=== PATIENT | male | born 1945 | race Two or more races ===

== ENCOUNTER 2018-03-31 06:18 | Emergency (ER) | payer OTHER ==
[~2018-03-31] VITALS: Ht 172.7 cm; Wt 99.8 kg
[2018-03-31] MEDS ORDERED: IRBESARTAN150 MG (06:38)
[2018-03-31] MEDS ORDERED: ACID CONTROLLER20 MG (06:39)
[2018-03-31] MEDS ORDERED: UNITHROID50 MCG (06:39)
[2018-03-31] MEDS ORDERED: ATORVASTATIN CA10 MG (06:39)
== END 2018-03-31 09:49 | disposition home or self-care (01) ==
LOC: ER 06:18
DX: S80.02XA Contusion of left knee, initial encounter (principal); S80.12XA Contusion of left lower leg, initial encounter; W18.09XA Striking against other object with subsequent fall, initial encounter; Y93.01 Activity, walking, marching and hiking; Y92.018 Other place in single-family (private) house as the place of occurrence of the external cause; Y99.8 Other external cause status